=== PATIENT | female | born 1985 | race Caucasian/White ===

== ENCOUNTER → 2018-01-31 | Outpatient (CLI) | payer MEDICAID | LOC: FIMAGING 09:08 | PROVIDERS: ATTEND Obstetrics & Gynecology | DX: Z34.91 Encounter for supervision of normal pregnancy, unspecified, first trimester (principal); Z3A.12 12 weeks gestation of pregnancy; Z87.59 Personal history of other complications of pregnancy, childbirth and the puerperium ==

== ENCOUNTER → 2018-02-28 | Outpatient (CLI) | payer MEDICAID | LOC: FLAB 12:21 | PROVIDERS: ATTEND Obstetrics & Gynecology | DX: O09.292 Supervision of pregnancy with other poor reproductive or obstetric history, second trimester (principal); Z3A.16 16 weeks gestation of pregnancy ==

== ENCOUNTER → 2018-03-14 | Outpatient (CLI) | payer MEDICAID | LOC: FIMAGING 12:18 | PROVIDERS: ATTEND Obstetrics & Gynecology | DX: O09.212 Supervision of pregnancy with history of pre-term labor, second trimester (principal); Z3A.18 18 weeks gestation of pregnancy ==

== ENCOUNTER → 2018-03-28 | Outpatient (CLI) | payer MEDICAID | LOC: FIMAGING 12:23 | PROVIDERS: ATTEND Obstetrics & Gynecology | DX: O09.292 Supervision of pregnancy with other poor reproductive or obstetric history, second trimester (principal); O26.02 Excessive weight gain in pregnancy, second trimester; Z3A.20 20 weeks gestation of pregnancy ==

== ENCOUNTER → 2018-04-11 | Outpatient (CLI) | payer MEDICAID | LOC: FIMAGING 12:38 | PROVIDERS: ATTEND Obstetrics & Gynecology | DX: O09.292 Supervision of pregnancy with other poor reproductive or obstetric history, second trimester (principal); O99.212 Obesity complicating pregnancy, second trimester; Z68.36 Body mass index [BMI] 36.0-36.9, adult; Z3A.22 22 weeks gestation of pregnancy ==

== ENCOUNTER → 2018-04-26 | Outpatient (CLI) | payer MEDICAID | LOC: FIMAGING 12:13 | PROVIDERS: ATTEND Obstetrics & Gynecology | DX: O09.212 Supervision of pregnancy with history of pre-term labor, second trimester (principal); O26.02 Excessive weight gain in pregnancy, second trimester; O09.292 Supervision of pregnancy with other poor reproductive or obstetric history, second trimester; Z68.36 Body mass index [BMI] 36.0-36.9, adult; Z3A.24 24 weeks gestation of pregnancy ==

== ENCOUNTER 2018-06-11 06:43 | Observation (INO) | payer MEDICAID ==
[2018-06-11] MEDS ORDERED: ONDANSETRON 4 MG/2 ML VIAL IVP PRN (07:25)
--- NOTE | 2018-06-11 12:05 | OBPROG ---
Labor Progress Note Assessment/Plan: Assessment: IUP at 30+wks N/V/D improved with IV fluids and Zofran Plan: D/C home, RTC as scheduled, Zofran script 06/11/18 12:01 Subjective/Intrapartum Course: 06/11/18 12:05 Pt presented in early hours due to N/V/D that started yesterday afternoon and persisted through noc. Had no V/D while here on [place] and rec'd IV fluids and Zofran and has slept for several hours. Now feels wonderful and desires d/c. GFM, no ROM or bld. Objective: 06/11/18 07:50 Total Bilirubin 0.5 mg/dL (0.1-1.4) 06/11/18 07:50 AST 13 IU/L (14-46) L 06/11/18 07:50 ALT 23 IU/L (9-52) 06/11/18 07:50 - SVE Membranes: Intact - Contraction Pattern Assessment Current Contraction Pattern: Other (Specify) (none) - FHR Assessment Malhotra FHR (bpm): 130 FHR Pattern Variability: Moderate FHR Category: 1 ICD10 Worksheet Patient Problems: Problems Problem Status Onset Nausea and vomiting Acute Normal intrauterine in third trimester Acute - ICD10 Problem Qualifiers (1) Normal intrauterine in third trimester (2) Nausea and vomiting
== END 2018-06-11 13:05 | disposition home or self-care (01) ==
LOC: FLD 06:43
PROVIDERS: ADMIT Obstetrics & Gynecology; ATTEND Obstetrics & Gynecology
DX: R11.2 Nausea with vomiting, unspecified (principal); R19.7 Diarrhea, unspecified; Z3A.30 30 weeks gestation of pregnancy
CPT/HCPCS: G0378 ×2; J2405

== ENCOUNTER 2018-07-26 06:35 | Day surgery (SDC) | payer MEDICAID ==
[2018-07-26] MEDS ORDERED: TERBUTALINE SULFATE 1 MG/ML VIAL IV ONE (07:02)
[2018-07-26] MEDS ORDERED: OLIVE OIL 118 ML BTL MISC ONE (07:02)
[2018-07-26 07:18] LABS: PLATELET COUNT 212 10^3/uL (150-400)
[2018-07-26] MEDS ORDERED: PROPRANOLOL HCL 1 MG/ML VIAL IV ONE (07:38)
[2018-07-26 08:43] VITALS: BP 122/64
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
--- NOTE | 2018-07-26 10:19 | OBPROG ---
Labor Progress Note Assessment/Plan: Assessment:31 at 37w2d with an unsuccessful external cephalic version attempt. Now with reassuring heart rate tracing. Advanced cervical dilation. Plan: Will dc home, with plan for office visit tomorrow. Will give an abdominal binder, to be applied only if pt feels that baby has flipped again, as will likely try accupuncture again. Will schedule primary C/S for breech at 39w 1d, on 08/08/18, but will do one more ECV attempt after spinal placed that day. If successful, will induce, if not, will proceed with C/S. Will discuss with providers scheduled for that day, including Dr. Palmer, Anesthesia. Long discussion about advanced cervical dilation - if any signs of labor or ROM , needs to come in immediately. Halina Epstein MD, FACOG 07/26/18 11:38 07/26/18 12:01 Subjective/Intrapartum Course: 07/26/18 11:55 Pt tolerated ECV attempt very well, sore but doing well. Objective: 07/26/18 07:05 Patient ABO/Rh A POSITIVE 07/26/18 07:05 Temp Pulse Resp BP Pulse Ox 77 122/64 H 07/26/18 08:41 07/26/18 08:41 Numerous attempts at ECV attempted - both forward and backward rolls, with pt tilted to the left, to the right, and even in knee chest position. Was able to get the vertex to move significantly, but it seems we were never able to get the buttocks out of the maternal pelvis, even in knee chest position. During each attempt, the FHR was checked and was always between 120-160. - SVE Dilation (cm): 4 Effacement (%): 80 Station: -2 - Contraction Pattern Assessment Current Contraction Pattern: Irregular Oxytocin Orders Assessment - Pre-Induction/Augmentation Assessment Gestational Age: 37 week(s) and 2 day(s) ICD10 Worksheet Patient Problems: Problems Problem Status Onset Nausea and vomiting Acute Normal intrauterine in third trimester Acute
== END 2018-07-26 11:30 | disposition home or self-care (01) ==
LOC: FOBOP 06:35
PROVIDERS: ATTEND Hospitalist
DX: O32.1XX0 Maternal care for breech presentation, not applicable or unspecified (principal); O99.513 Diseases of the respiratory system complicating pregnancy, third trimester; J45.909 Unspecified asthma, uncomplicated; Z3A.37 37 weeks gestation of pregnancy
CPT/HCPCS: J3105